=== PATIENT | female | born 1970 | race African-American/Black ===

== ENCOUNTER 2019-02-14 10:57 | Observation (INO) | payer OTHER ==
[2019-02-14] MEDS ORDERED: Naproxen TAB* 250 MG ONE (11:40)
[2019-02-14] MEDS ORDERED: Scopolamine 1.5 mg* PATCH ONE (11:40)
[2019-02-14] MEDS ORDERED: Ondansetron INJ* 2 MG/ML VIAL ONE (11:40)
[2019-02-14] MEDS ORDERED: oxyCODONE SR TAB(*) 10 MG TAB.SR ONE ×2 (11:41→11:56)
[2019-02-14] MEDS ORDERED: LORazepam TAB(*) 1 MG ONE (11:41)
[2019-02-14] MEDS ORDERED: Clindamycin 900 MG/D5W BAG(*) 900 MG/50 ML BAG IVPB ONE (12:00)
[2019-02-14 12:08] LABS: Anion Gap 4 mmol/L (2-11); BUN/Creatinine Ratio 23.5 (8-20); Blood Urea Nitrogen 16 mg/dL (6-24); CO2 Carbon Dioxide 25 mmol/L (22-32); Calcium 9.3 mg/dL (8.6-10.3); Chloride 109 mmol/L (101-111); EGFR African American 112.2 (>60); EGFR Non-African American 92.7 (>60); Glucose 93 mg/dL (70-100); Potassium 3.7 mmol/L (3.5-5.0); Sodium 138 mmol/L (135-145)
[2019-02-14 12:15] LABS: HCG Pregnancy < 0.60 mIU/mL
[2019-02-14] MEDS ORDERED: fentaNYL* 50 MCG/ML 5 ML VIAL (250 MCG VIAL) ONE (12:24)
[2019-02-14] MEDS ORDERED: Ketorolac INJ* 30 MG/ML 1 ML VIAL ONE ×2 (12:24→14:33)
[2019-02-14] MEDS ORDERED: Midazolam* 1 MG/ML 5 ML VIAL (5 MG) ONE ×2 (12:24→14:59)
[2019-02-14] MEDS ORDERED: Iohexol 350 (CONTRAST) 200 ML MDV IV ONE ×2 (12:25→14:23)
[2019-02-14] MEDS ORDERED: nitroGLYCERIN DRIP* 25,000 MCG/250 ML BTL ONE (12:25)
[2019-02-14] MEDS ORDERED: Heparin 2 UNITS/ML IVPREMIX* 1,000 ML IV ONE ×2 (12:25→12:29)
[2019-02-14] MEDS ORDERED: Lidocaine 1% INJ* 10 MG/ML 30 ML SDV ONE (12:25)
[2019-02-14] MEDS ORDERED: HYDROmorphone INJ1* 1 MG/ML SYRINGE ONE ×2 (14:40→15:02)
[2019-02-14] MEDS ORDERED: fentaNYL* 50 MCG/ML 2 ML VIAL (100 MCG VIAL) ONE (14:59)
[2019-02-14] MEDS ORDERED: HYDROmorphone PCA* 20 MG/20 ML PCA.SYRING ONE (15:24)
[2019-02-14] MEDS: NS 0.9% 1000 ML** 1,000 ML IV SCH ×2 (15:38→20:20)
[2019-02-14] MEDS ORDERED: Naloxone* 0.4 MG/ML 1 ML VIAL IV PUSH PRN (16:39)
[2019-02-14] MEDS ORDERED: HYDROmorphone PCA* 20 MG/20 ML PCA.SYRING PCA SCH (17:00)
[2019-02-14] MEDS ORDERED: Acetaminophen TAB* 325 MG PO PRN (18:07)
--- NOTE | 2019-02-14 19:18 | PN ---
Progress Note - Progress Note Date of Service: 02/14/19 SOAP: Subjective: Patient denies pain in the pelvis or right groin at this time. Denies nausea or emesis. Objective: Selected Entries 02/14/19 02/14/19 02/14/19 17:15 17:28 18:23 Temperature 96.9 F Temperature Temporal Artery Source Scan Pulse Rate 50 Respiratory 16 Rate Blood Pressure 138/55 (mmHg) O2 Sat by Pulse 94 Oximetry Sleeping, but arousable to voice. NAD, AAO x 3 Abd is soft, nontender. No rebound or guarding. 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 Plan: 1. Routine Interventional Radiology post UFE pain & nausea regimen. 2. Diet, advance slowly. 3. [place] DC at 1999. 4. Bedrest with right leg straight until 1999. 5. INSURANCE LAW SPECIALIST monitor HR parameter can be reduced to 45 BPM (patient states her heart rate slows to 40's when she sleeps).
[2019-02-14] MEDS: Ondansetron INJ* 2 MG/ML VIAL IV SCH (20:19)
[2019-02-14] MEDS: Ketorolac INJ* 15 MG/ML 1 ML VIAL IV PUSH SCH (20:19)
--- NOTE | 2019-02-14 20:21 | HP ---
CC: Dr. Mckeon * HISTORY AND PHYSICAL: DATE OF ADMISSION: 02/14/19 PROVIDER: Adrianna Rocha NP PRIMARY CARE PROVIDER: Dr. Mckeon. ATTENDING PHYSICIAN WHILE IN THE HOSPITAL: Darinel Ovalles MD * (dictated by Adrianna Rocha NP) CHIEF COMPLAINT: Uterine fibroid embolization. HISTORY OF PRESENT ILLNESS: Ms. Gallegos is a 48-year-old female with past medical history significant for chronic pelvic pain, uterine fibroids, menorrhagia, hypertension, high cholesterol, and osteoarthritis, who presented [place] [facility] elective uterine artery fibroid embolization with Dr. Mckeon. In brief, the patient had continued heavy bleeding, pelvic pain, and had 2 uterine fibroids, was seen in consultation with Dr. Mckeon who recommended uterine fibroid embolization due to the patient's ongoing heavy bleeding. The patient did undergo uterine fibroid embolization today. She will be admitted under observation post procedure. Hospital Medicine was asked to see and admit her due to her uterine fibroid embolization procedure. PAST MEDICAL HISTORY: Significant for: 1. Chronic pelvic pain, uterine fibroids, and menorrhagia. 2. Hypertension. 3. Hyperlipidemia. 4. Osteoarthritis. PAST SURGICAL HISTORY: Had eyelid surgery. HOME MEDICATIONS: Include: 1. Amlodipine 10 mg p.o. daily. 2. Atorvastatin 40 mg p.o. daily. 3. Lysteda 650 mg 2 tablets every 8 hours x5 days with menses. 4. Naproxen 500 mg 1 tablet every 12 hours as needed. ALLERGIES: No known drug allergies. FAMILY HISTORY: Mother with diabetes and hypertension. Sister with hypertension. No reported history of cancer within the family. SOCIAL HISTORY: The patient is single. She lives with her son. 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 She does report she smokes 2 to 3 cigarettes daily. Does report occasional alcohol use and does report daily marijuana use. Denies any other illicit drug use. Surrogate decision-maker in the event she is unable to make her own decisions is her son and she is a full code. REVIEW OF SYSTEMS: The patient denies any recent fever, chills, nausea, vomiting, diarrhea. She does complain of some lower back postsurgically. She denies any abdominal pain at this time and denies nausea or vomiting. Denies any chest pain or shortness of breath. Denies any open rashes, lesions, sores. Denies any psychosis or anxiety. PHYSICAL EXAMINATION GENERAL: At this time, Ms. Gallegos is a 48-year-old female. She is alert, but drowsy, resting in her hospital bed in her room. She is in no acute distress. VITAL SIGNS: Blood pressure 138/55, heart rate 63, respirations 16, O2 saturation 94%, temperature was 96.9. HEENT: Head is atraumatic, normocephalic. Eyes: EOMs are intact. Sclerae anicteric, but not pale. Oral mucosa appeared to be moist. NECK: Supple. LUNGS: Clear to auscultation bilaterally. No wheezes, rales, or rhonchi. CARDIAC: S1, S2. Regular rate and rhythm. No murmurs, rubs, or gallops. ABDOMEN: Soft and nontender. Bowel sounds are present x4. EXTREMITIES: She is able to move all 4 extremities. Pedal pulses are +2 bilaterally. There is no clubbing or cyanosis. NEUROLOGIC: She is awake, but drowsy. She is alert and oriented. Speech is clear. Thought process is intact. There are no gross focal deficits. SKIN: Intact. DIAGNOSTIC STUDIES/LAB DATA: Sodium was 138, potassium 3.7, chloride 109, carbon dioxide was 25, anion gap was 4, BUN was 16, creatinine 0.68, glucose was 93. Calcium 9.3. Beta-hCG was less than 0.60. ASSESSMENT AND PLAN: Ms. Gallegos is a 48-year-old female with past medical history significant for uterine fibroids, hypertension, hyperlipidemia, osteoarthritis, chronic pelvic pain, and heavy menstruation, who presented to [facility] [place] an elective uterine artery fibroid embolization with Dr. Mckeon. She will be admitted under observation for: 1. Status post uterine fibroid embolization. Management per Dr. Mckeon, pain management per Dr. Mckeon, bed rest per Dr. Mckeon's orders. I will add Tylenol 650 mg every 6 hours as needed for pain. 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 2. Hypertension. We will hold her amlodipine and resume as blood pressure allows. 3. Hyperlipidemia. She will continue on atorvastatin as previously prescribed. 4. FEN. She can have a clear liquid diet, advance as tolerated. 5. Code status. She is a full code. 6. DVT prophylaxis. I will place her on SCDs. Encourage ambulation. TIME SPENT: Time spent on this admission was 60 minutes; greater than half that time was spent at the bedside reviewing events leading thus far to her hospitalization, performing physical exam, and reviewing my plan of care. I have discussed this with my attending Dr. Darinel Ovalles; he is in agreement with my plan. ADRIANNA ROCHA, KAYLEEN [id number]/[facility] #: [id number] JUDI
[2019-02-14] MEDS ORDERED: Atorvastatin* 40 MG TAB PO SCH (21:00)
[2019-02-15] MEDS: Ondansetron INJ* 2 MG/ML VIAL IV SCH ×2 (01:52→08:10)
[2019-02-15] MEDS: Ketorolac INJ* 15 MG/ML 1 ML VIAL IV PUSH SCH ×2 (01:54→08:10)
[2019-02-15] MEDS: NS 0.9% 1000 ML** 1,000 ML IV SCH (01:57)
[2019-02-15 08:03] VITALS: BP 177/74
--- NOTE | 2019-02-15 08:26 | PN ---
Progress Note - Progress Note Date of Service: 02/15/19 SOAP: Subjective: Patient reports 0/10 pelvic pain and no pain at right CF arteriotomy site. Reports pain at posterior left thigh. Has drank clear fluids overnight without nausea or emesis. + void. Walked independently. Objective: Selected Entries 02/15/19 08:02 Temperature 97.2 F Temperature Oral Source Pulse Rate 51 Respiratory 16 Rate Blood Pressure 177/74 (mmHg) Blood Pressure 108 Mean O2 Sat by Pulse 100 Oximetry Patient on Room Yes Air NAD, AAO x 3 Pelvis is soft, nontender Right groin is soft, nontender Dressing is C/D/I Neuromuscular function of BLE is grossly intact. Specifically there is no left leg weakness. Sensation intact to light touch. No point tenderness is elicited when pressing posterior left thigh. Assessment: 48 YOF POD #1 status post Uterine Artery Fibroid Embolization with pain and nausea well controlled. Left posterior thigh pain is nonspecific and not reproducible on physical examination. Plan: 1. Transition IV to PO meds. 2. Encouraged breakfast diet (mild items like cream of wheat). 3. Discharge medications as follows: Toradol 10 mg PO Q 6 hours x 3 days (Dispense #15 with one refill) AFTER Toradol is complete: Ibuprofen 400 mg PO Q 6 hours OR Naprosyn 225 mg PO Q 8 hours for 3-5 days (do not take both) [place] 5/325, take 1 or 2 tablets by mouth Q 6 hours PRN breakthrough pain ( Dispense #40) Zofran 4 mg PO Q 6 hours x 7 days (Dispense #30 with one refill) Scopolamine 1.5 mg transdermal to mastoid process. On 06/03/18 at 900 AM, remove current patch, replace with new patch and wear x 3 days. Colace 100 mg PO BID x 1 week OR Drink one cup of laxative tea daily (For example, "Smooth Move") for one week.
[2019-02-15] MEDS ORDERED: HYDROcodone/ACETAMIN 5-325 MG* 1 TAB PO PRN ×2 (08:28→11:30)
[2019-02-15] MEDS ORDERED: Ketorolac TAB * 10 MG TAB PO SCH ×2 (09:00→14:00)
[2019-02-15] MEDS ORDERED: Docusate CAP* 100 MG PO SCH (09:00)
[2019-02-15] MEDS ORDERED: Ondansetron TAB* 4 MG PO SCH ×2 (09:00→14:00)
[2019-02-15] MEDS ORDERED: HYDROcodone/ACETAMIN 5-325 MG* 1 TAB ONE (11:36)
[2019-02-15] MEDS ORDERED: HYDROcodone/ACETAMIN 5-325 MG* 1 TAB PO ONE (12:00)
--- NOTE | 2019-02-16 04:40 | DS ---
DISCHARGE SUMMARY: DATE OF ADMISSION: 02/14/19 DATE OF DISCHARGE: 02/15/19 PROVIDER: Adrianna Rocha NP PRIMARY CARE PROVIDER: [facility]. ATTENDING PHYSICIAN WHILE IN THE HOSPITAL: Darinel Ovalles MD* (dictated by Adrianna Rocha NP) PRIMARY DIAGNOSIS: Status post uterine artery fibroid embolization. SECONDARY DIAGNOSES: 1. Hypertension. 2. Hyperlipidemia. 3. Osteoarthritis. 4. Chronic pelvic pain. STUDIES COMPLETED WHILE IN THE HOSPITAL: She had a BMP, which was within normal limits. DISCHARGE MEDICATIONS: New home medications: 1. Toradol 10 mg p.o. q.6 hours x3 days. 2. Hydrocodone/acetaminophen 5/325 mg 1 to 2 tablets every 6 hours as needed for severe pain. 3. Zofran 4 mg p.o. q.6 hours. 4. Scopolamine patch 1.5 mg patch transdermally, to replace patch on Monday. 5. Colace 100 mg p.o. b.i.d. x1 week. Continued home medications: 1. Lipitor 40 mg at bedtime. 2. Amlodipine 5 mg p.o. daily. 3. Lysteda 1300 mg p.o. q.8 hours as needed during menses. HISTORY OF PRESENT ILLNESS AND HOSPITAL COURSE: Ms. Gallegos is a 48-year-old female with past medical history significant for chronic pelvic pain, uterine fibroids, menorrhagia, hypertension, high cholesterol and osteoarthritis who presented to [facility] [place] for an elective uterine artery fibroid embolization with Dr. Mckeon. Please see dictated H and P from Dr. Mckeon for complete details. In brief, the patient had ongoing heavy menses and pelvic pain, was found to have 2 uterine fibroids and elected to undergo uterine artery fibroid embolization due to heavy bleeding. During her hospitalization, the patient's pain was controlled initially with IV medications. She was able to transition to p.o. medications and her pain remained controlled. The patient did have complaint of intermittent pain to her left buttocks, which was relieved with pain medications. The patient was able to ambulate. She has full sensation in bilateral lower extremities. She ambulated without difficulty and no weakness in either extremity; pedal pulses were +2 bilaterally and both extremities were warm to touch. On the day of discharge, the patient reports that her pain is currently controlled with current oral pain medications. She is tolerating p.o. food and fluids without difficulty. She has had a bowel movement and is urinating without difficulty. At this time, she is stable for discharge home. REVIEW OF SYSTEMS: A 14-point review of systems was completed. The patient's only pertinent positive was complaints of intermittent buttocks pain, which was relieved with oral pain medications. She denied any nausea, vomiting, diarrhea. Denied any fever or chills. Denied any current abdominal pain. PHYSICAL EXAMINATION: General: At this time, Ms. Gallegos is alert and oriented , resting in her hospital bed, she is in no acute distress. Vital Signs: Blood pressure 177/74, heart rate 51, respirations 16, O2 saturation 100%, temperature was 97.2. HEENT: Head is atraumatic, normocephalic. Eyes: EOMs are intact. Sclerae anicteric and not pale. Oral mucosa is moist. Neck is supple. Lungs are clear to auscultation bilaterally. No wheezes, rales, or rhonchi. Cardiac: S1, S2. Regular rate and rhythm. No murmurs, rubs, or gallops. Abdomen is soft and nontender. Bowel sounds are present x4. Extremities: She is able to move all 4 extremities. There is no clubbing or cyanosis. Pedal pulses are +2 bilaterally. Posterior tibial pulses are +2 bilaterally. Sensation is intact to bilateral lower extremities. Skin is warm to touch. She has full range of motion to bilateral lower extremities. She is able to walk without difficulty. Neurologic: She is awake, alert, and oriented x3. Speech is clear. Thought process is intact. There are no gross focal deficits. At this time, Ms. Gallegos is stable for discharge home. DISCHARGE PLAN: Ms. Gallegos will be discharged home. Activity, as tolerated. 1. Status post uterine artery fibroid embolization. The patient will be placed on Toradol 10 mg every 6 hours round the clock x3 days and then she can transition to ibuprofen 400 mg every 6 hours or naproxen 225 mg every 8 hours for 3 to 5 days. The patient was instructed not to take Toradol and ibuprofen together. She was also instructed not to take Toradol and naproxen together. The patient was also instructed not to take naproxen and ibuprofen together. The patient verbalized understanding. The patient was instructed she could take 1 to 2 tablets of hydrocodone every 6 hours as needed for breakthrough severe pain. The patient was prescribed Zofran 4 mg p.o. q.6 hours. She is to take that x7 days for nausea. The patient was also prescribed scopolamine patch 1.5 mg. She is to place this patch on 02/17/19 at 9 a.m. and remove the current scopolamine patch. The patient should take Colace 100 mg p.o. b.i.d. times a week to prevent constipation. The patient was instructed to notify the physician of swelling, bleeding at the puncture site, persisting or worsening pain weeks after the procedure, fever greater than 101, vaginal discharge, excessive heavy bleeding or foul smelling discharge. The patient verbalized understanding. 2. Hypertension. The patient should resume her home medications as previously prescribed. The patient should follow up with Dr. Mckeon. She should call for an appointment. She should follow up with her primary care provider in 1 to 2 weeks as needed. The patient should return to the emergency room for any chest pain, shortness of breath, worsening uncontrolled pain, or any other concerning symptoms. The patient verbalized understanding. TIME SPENT: Time spent on this discharge was 45 minutes; greater than half the time was spent on reviewing discharge instructions and plans. I have discussed this with my attending, Dr. Darinel Oavlles; he is in agreement with my plan. CONDITION ON DISCHARGE: Stable. DISPOSITION ON DISCHARGE: Home. ADRIANNA ROCHA, KAYLEEN [id number]/[facility] #: [id number] JUDI
== END 2019-02-15 11:50 | disposition home or self-care (01) ==
LOC: CHICATH 10:57 → SSU 18:03
PROVIDERS: ADMIT Internal Medicine; ATTEND Radiology Diagnostic Radiology
DX: N92.4 Excessive bleeding in the premenopausal period (principal); R10.2 Pelvic and perineal pain; D25.9 Leiomyoma of uterus, unspecified; I10 Essential (primary) hypertension; E78.5 Hyperlipidemia, unspecified; M19.90 Unspecified osteoarthritis, unspecified site; Z79.899 Other long term (current) drug therapy; F17.210 Nicotine dependence, cigarettes, uncomplicated; E78.00 Pure hypercholesterolemia, unspecified; N73.9 Female pelvic inflammatory disease, unspecified
CPT/HCPCS: 36415; 37243; 75736; 76937; 80048; 84702; 96374; 96375; 96376; 99156; 99157; A9270-GY; C1769; C1884; C1887; C1894; G0378; J1170; J1644; J1885; J2250; J2405; J3010